=== PATIENT | male | born 1985 | race Caucasian/White ===

== ENCOUNTER 2024-11-11 14:15 | Outpatient (CLI) | payer OTHER, SELFPAY ==
--- NOTE | ~2024-11-11 | XR_ITS ---
EXAMINATION: XR chest 2V DATE: 11/11/2024 14:42 INDICATION: Pleurodynia with left rib pain post fall one week prior TECHNIQUE: PA and lateral views of the chest were obtained. COMPARISON: None FINDINGS: The lungs are clear with no focal airspace opacities, pulmonary edema, pleural effusion or pneumothor ax. The cardiomediastinal silhouette is normal. No rib fractures identified. Mild to moderate thoraci c spondylosis with mild anterior wedging of a couple mid thoracic vertebral bodies. IMPRESSION: 1. No acute cardiopulmonary disease. Reviewed, dictated and finalized at location B. L DEFENSE DIRECTOR
== END 2024-11-11 14:16 | disposition home or self-care (01) ==
LOC: MICIMG 14:21
DX: R07.81 Pleurodynia (principal)
CPT/HCPCS: 71046

== ENCOUNTER 2025-02-08 10:26 | Outpatient (CLI) | payer OTHER, SELFPAY ==
--- OUTSIDE RECORDS SUMMARY | 2025-02-08 11:57 | XMS_ITS | Clinical Summary ---
Author Organization [facility] Address [facility] [place] [address] Care Team Providers Care Eddy Current Inspector Name Role Phone Unavailable Primary Care Provider Unavailabl e Allergies No known active allergies Medications tamsulosin (FLOMAX) 0.4 MG Cap Take 1 capsule (0.4 mg total) by mouth daily. 30 capsule 07/07/2018 Active hydrocodone-melissa taminophen (NORCO) 5-325 MG tablet Take 1-2 tablets by mouth every 6 (six) hours as needed for Pain. 16 tablet 07/07/2018 Active Family History Medical History Relation Comments Diabetes Paternal Grandfather Diabetes Paternal Grandmother Relation Status Comments Paternal Grandfather Paternal Grandmother Social History Tobacco Use Types Packs/Day Years Used Date Smoking Tobacco: Never Smokeless Tobacco: Never Alcohol Use Standard Drinks/Week Comments Yes 0 (1 standard drink = 0.6 oz pur e alcohol) socially Sex and Gender Information Value Date Recorded Sex Assigned at Not on file Legal Sex Male 11:46 AM CDT Gender Identity Not on file Sexual Orientation Not on file Last Filed Vital Signs Vital Sign Reading Time Taken Comments Blood Pressure 159/94 07/07/2018 3:11 PM CDT Pulse 60 07/07/2018 3:11 PM CDT Temperature 36.9 C (98.5 F) 07/07/2018 11:52 AM CDT Respiratory Rate 18 07/07/2018 3:11 PM CDT Oxygen Saturation 100% 07/07/2018 3:11 PM CDT Inhaled Oxygen Concentration - - Weight 85.7 kg (189 lb) 07/07/2018 11:52 AM CDT Height 181.6 cm (5' 11.5 ) 07/07/2018 11:52 AM C DT Body Mass Index 25.99 07/07/2018 11:52 AM CDT Plan of Treatment Health Maintenance Due Date Last Done Comments Annual Physical 1986 Hepatitis C 2001 DTaP, Tdap and Td Vaccines ( 1 - Tdap) 2002 Hepatitis B Vaccines (1 of 3 - 19+ 3-dose series) 2002 COVID-19 Vaccine (2023-2 5 season) 2024 HPV Vaccines Aged Out No longer eligi ble based on patient's age to complete this topic Meningococcal B Vaccine Aged Out No l onger eligible based on patient's age to complete this topic Meningococcal Vaccine Aged Out No veronique mauricio eligible based on patient's age to complete this topic Pneumococcal Vaccine: Pediat rics (0 to 5 Years) and At-Risk Patients (6 to 64 Years) Aged Out No longer eligible b ased on patient's age to complete this topic RSV Immunizations Under 20 Months Aged Out No longer eligible based on patient's age to complete this topic
--- OUTSIDE RECORDS SUMMARY | 2025-02-08 11:57 | XMS_ITS | Clinical Summary ---
Author Organization [facility] Address [address] [place] [address] Care Team Providers Care Body Work Auto Trimmer Name Role Phone Unavailable Primary Care Provider Unavailabl e Source Comments [facility],non-owned Affiliates and Associated Physician Practices is amultiple site organization consisting of ambulatory clinics and hospital sitesin [place], [place], [place] and [place]. This disclosure is being madepursuant to the Care Everywhere program and may not contain all information available regarding this patient. Last updated 18.[facility] Allergies No known active allergies Medications Be aware that medications may not be up to date on this document. Always verify current medications with the patient. No known medications Social History Tobacco Use Types Packs/Day Years Used Date Smoking Tobacco: Never Smokeless Tobacco: Never Sex and Gender Information Value Date Recorded Sex Assigned at Not on file Gender Identity Not on file Sexual Orientation Not on file Last Filed Vital Signs Vital Sign Reading Time Taken Comments Blood Pressure 128/88 05/14/2020 7:13 PM CDT Pulse 102 05/14/2020 7:13 PM CDT Temperature 37 C (98.6 F) 05/14/2020 7:13 PM CDT Respiratory Rate 14 05/14/2020 7:13 PM CDT Oxygen Saturation 98% 05/14/2020 7:13 PM CDT Inhaled Oxygen Concentration - - Weight 88.5 kg (195 lb) 05/14/2020 7:13 PM CDT Height 180.3 cm (5' 11 ) 05/14/2020 7:13 PM CDT Body Mass Index 27.2 05/14/2020 7:13 PM CDT Plan of Treatment Health Maintenance Due Date Last Done Comments LIPID TESTING 1983 HIV SCREENING 1998 HEPATITIS C SCREENING 06/29/2001 DTAP/TDAP/TD VACCINES (1 - Tdap) 2002 HEPATITIS B VACCINE (1 of 3 - 19+ 3-dose series) 2002 COVID-19 VACCINE (1 - 2023-2 5 season) 2024 INFLUENZA VACCINE (#1) 2024 DEPRESSION SCREENING 11/09/2024 ZOSTER VACCINE (1 of 2) 2033 HIB VACCINE Aged Out No longer eligi ble based on patient's age to complete this topic HPV VACCINE Aged Out No longer eligi ble based on patient's age to complete this topic MENINGOCOCCAL (Group B) VACC INE SHARED DECISION-MAKING Aged Out No longer eligibl e based on patient's age to complete this topic MENINGOCOCCAL GROUPS A/C/Y/W VACCINE Aged Out No longer eligible b ased on patient's age to complete this topic PNEUMOCOCCAL VACCINE Aged Out No long er eligible based on patient's age to complete this topic
--- OUTSIDE RECORDS SUMMARY | 2025-02-08 11:57 | XMS_ITS | Data Portability ---
Author Organization [facility], Main Office Address [address] [place] [address] Assessment No assessment recorded. Plan of Treatment Reminders Order Date Submit Date Provider Last Modified By Organization Details Last Modified Time Details Appointments None recorded. Lab rapid flu (A+B) [address] [facility] [place], [address] [place] [address], [place], [address], 11:25:25 Referral general surgeon referral - Please call patient to schedule an appointmen t. Thank you. 2024 025 [facility] Db Garcia DO, [address], [address], [place], [address], 5 11:11:18 physical therapist referral - Please call patient to schedule. 2024 025 [email or web address] [facility], [address], [place], [address], 5 16:23:04 Procedures None recorded. Surgeries None recorded. Imaging US, groin - Please call patient to schedule. [address] [facility] ([facility]), [address] [place], [address], 5 13:00:44 XR, chest, 2 view 2024 025 [facility], [address], [place], [address], 13:17:52 Medication Orders tramadol 50 mg tablet 2024 025 [facility] [address] [place] [address], [address], 5 16:28:59 Tamiflu 75 mg capsule 2024 025 [address], [address] [place] [address], [address], 5 16:12:02 benzonatat e 200 mg capsule 2024 025 [address], [address] [place] [address], [address], 5 16:11:56 Medrol (Miguel) 4 mg tablets in a dose pack 2024 025 [address], [address] [place] [address], [address], 5 16:11:59 cyclobenza amry 10 mg tablet [address] [facility], [address] [place], [place], [id number], 5 09:57:18 meloxicam 7.5 mg tablet [address] [facility]58733, [address] [facility], [place], [place], [id number], 5 09:57:21 methylpred nisolone 8 mg tablet [address] [facility]35427, [address] [place], [place], [id number], 5 14:39:32 Patient TargetsNo targets recorded. Patient InstructionsNo instructions recorded. Reason for Referral Physical Therapist Referral for Ulnar nerve entrapment at elbow Please call patient to schedule. Referring Physician: Arminda Mcdonald [facility], Encounter Date: 12/08/2024 General Surgeon Referral for Right inguinal hernia Please call patient to schedule an appointment. Thank you. Referring Physician: Arminda Mcdonald [facility], Encounter Date: 01/04/2025 Results Created Date Observation Date Name Description Value Unit Range Abnormal Flag Note LastModifiedBy Organization Detail LastModifiedTime 12/13/1912/13/2024 rapid flu (A+B) Flu A positi ve Not Available [address], [address], 12/13/2024 10:12:02 12/13/19 25 12/13/2024 rapid flu (A+B) Flu B negati ve Not Available [address], [address], 12/13/2024 10:12:02 11/12/19 25 11/11/2024 XR, chest , 2 view No observ ation record ed. [address] [facility] [address], [place], [address], 11/15/2024 09:39:08 01/11/2001/10/2025 US, groin No observ ation record ed. [facility] [address] [place], [address], 01/11/2025 13:00:44 Result Notes None recorded. Problems Name Problem SNOMED Code Status Onset Date Resolution Date Notes Provider Name and Address Organization Details Recorded Time Pain of left ankle joint 8257519217538 9103 Active 2023 GUY Og [address] [facility], [facility] [address], [place], [address] , [facility] 05/01/202 4 14:20:49 Overweight 265565960 Active 2023 GUY Og [address], [place], [address], [employer] [facility] 4 14:30:12 Infection of tooth 955330216 Active 2023 GUY Og [address], [place], [address], [employer] [place] [employer] [facility] 4 09:52:54 Pain in left foot 6528117423806 07 Active 2023 Aaron Cheema DPM [address], [place], [address], [employer] [facility] 4 16:41:29 Sexually transmitted infectious disease 9981540 Active 2023 GUY Og [address], [place], [address], [employer] [facility] 4 16:17:28 Unable to concentrate 46387443 Active 2023 GUY Og [address], [place], [address], [employer] [facility] 4 16:19:20 Tibialis posterior tendinitis 106024874 Active 2023 KEVIN Keith null, [place] - [facility] [place] [facility] 4 15:03:45 Edema of lower extremity 771312071 Active 2023 Aaron Cheema DPM [address], [place], [address], [employer] [facility] [place] [facility] 4 09:45:08 Right Achilles tendinitis 8845136726811 02 Active 2023 Aaron Cheema DPM [address], [place], [address], [facility] [place] [employer] [facility] 4 09:45:17 Rib pain 302909093 Active 2024 GUY Og [address], [place], [address], [employer] 14:54:37 Ulnar nerve entrapment at elbow 131678192 Active 2024 GUY Og [address], [place], [address], [facility] 10:10:36 Influenza caused by Influenza A virus 760950825 Active 2024 GUY Og [address], [place], [address], [facility] 10:06:44 Right inguinal hernia 678762707 Active 2024 GUY Og [address], [place], [address], [facility] [facility] 16:19:01 Problem Notes None recorded. Procedures Surgical History Date Name Laterality Status Provider Name and Address Organization Details Recorded Time 08/25/20 24 Cortisone Injection Ankle-Right completed Aaron Cheema DPM [address], [place], [address], [facility] 08/29/2024 09:44:48 08/25/20 24 Unna boot - LE edema completed Aaron Cheema DPM [address], [place], [address], [facility] 08/29/2024 09:45:01 05/04/20 24 Cortisone Injection Ankle-Left completed Aaron Cheema DPM [address], [place], [address], [facility] 05/04/2024 10:11:19 05/04/20 24 Unna boot - LE edema completed Aaron Cheema DPM [address], [place], [address], [facility] 05/04/2024 10:11:27 05/02/20 24 Cortisone Injection Ankle-Left completed Aaron Cheema DPM [address] [facility], [facility] [address], [place], [address], [place] [facility] [employer] [facility] 05/02/2024 16:41:20 11/09/19 03 Appendectomy completed Bernie Orozco RN [facility] [employer] [facility] 03/09/2024 14:08:59 Imaging Results Imaging Date Name Status LastModified by Organiz ation Details LastModified Time 11/11/2024 XR, chest, 2 view completed formerly [facility], [facility]1983[facility]ke3 [facility] [address] [facility] [address], [place], [address], 11/15/2024 09:39:08 01/10/2025 US, groin completed [facility], [facility][id number] [facility] [address] [facility], [place], [address], 01/11/2025 13:00:44 Procedure Notes None recorded. Medical Equipment None Reported. Allergies No known drug allergies Medications Name Sig Start Date Stop Date Status Note LastModified by Organization Details LastModified Time cyclobenzap rine 10 mg tablet Take 1 tablet 3 times a day by oral route as needed for 14 days. 12/08 completed Not Available Not Available Not Available amoxicillin 500 mg capsule TAKE 1 CAPSULE THREE TIMES DAILY FOR 7 DAYS 11/11 completed Not Available Not Available Not Available ibuprofen 800 mg tablet TAKE 1 TABLET BY MOUTH THREE TIMES DAILY FOR 5 DAYS NEEDED FOR TOOTH PAIN 11/11 completed Not Available Not Available Not Available benzonatate 200 mg capsule Take 1 capsule 3 times a day by oral route as needed for 10 days. 01/04 completed Not Available Not Available Not Available hydrocodone 5 mg-acetamin ophen 325 mg tablet TAKE 1 TABLET BY MOUTH EVERY 4 TO 6 HOURS NEEDED FOR PAIN 06/08 completed Not Available Not Available Not Available Medrol (Miguel) 4 mg tablets in a dose pack Take as directed 01/04 completed Not Available Not Available Not Available Tamiflu 75 mg capsule Take 1 capsule twice a day by oral route as directed for 5 days. 01/04 completed Not Available Not Available Not Available tramadol 50 mg tablet Take 1 tablet every 8 hours by oral route as needed for 14 days. 2024 active Not Available Not Available Not Avai lable meloxicam 7.5 mg tablet Take 1 tablet twice a day by oral route as needed for 30 days. 12/08 completed Not Available Not Available Not Available amoxicillin 875 mg tablet TAKE 1 TABLET BY MOUTH STAT THEN TAKE 1 TABLET TWICE DAILY UNTIL GONE 06/08 completed Not Available Not Available Not Available methylpredn isolone 8 mg tablet Take 1 tablet 3 times a day by oral route. 11/11 completed Not Available Not Available Not Available amoxicillin 875 mg-potassiu m clavulanate 125 mg tablet Take 1 tablet every 12 hours by oral route as directed for 5 days. 06/08 completed Not Available Not Available Not Available Vitals Date Recorded Body height Body mass index (BMI) Body weight Oxygen saturation Oxygen saturation in Arterial blood by Pulse oximetry Body temperature Heart rate Provider Name and Address Organization Details Last Updated DateTime 4 180.34 cm 27.3 kg/m2 27533.1 g 98 % 98 % 98.4 [degF] 77 /min KEVIN Keith [facility] 4 14:50:52 Date Recorded Body height Body mass index (BMI) Body weight Body temperature Heart rate Respiratory rate Oxygen saturation Oxygen saturation in Arterial blood by Pulse oximetry Pain severity - 0-10 verbal numeric rating [Score] - Reported Systolic blood pressure Diastolic blood pressure Provider Name and Address Organization Details Last Updated DateTime 5 180.34 cm 27.4 kg/m2 47485.8 g 97.7 [degF] 83 /min 20 /min 96 % 96 % 7 142 mm[Hg] 80 mm[Hg] Bernie Orozco RN [facility] 5 14:41:37 Date Recorded Body height Body mass index (BMI) Body weight Body temperature Heart rate Respiratory rate Oxygen saturation Oxygen saturation in Arterial blood by Pulse oximetry Pain severity - 0-10 verbal numeric rating [Score] - Reported Systolic blood pressure Diastolic blood pressure Provider Name and Address Organization Details Last Updated DateTime 5 180.34 cm 27.6 kg/m2 70208.6 4 g 97.5 [degF] 74 /min 20 /min 97 % 97 % 2 146 mm[Hg] 90 mm[Hg] Bernie Orozco RN [facility] [employer] [facility] 5 10:00:25 Date Recorded Body height Body mass index (BMI) Body weight Body temperature Heart rate Respiratory rate Pain severity - 0-10 verbal numeric rating [Score] - Reported Oxygen saturation Oxygen saturation in Arterial blood by Pulse oximetry Systolic blood pressure Diastolic blood pressure Provider Name and Address Organization Details Last Updated DateTime 5 180.34 cm 27.4 kg/m2 42836.2 g 97.7 [degF] 82 /min 20 /min 4 98 % 98 % 100 mm[Hg] 50 mm[Hg] Bernie Orozco RN [facility] [employer] [facility] 5 09:59:55 Date Recorded Body height Body mass index (BMI) Body weight Body temperature Heart rate Respiratory rate Oxygen saturation Oxygen saturation in Arterial blood by Pulse oximetry Pain severity - 0-10 verbal numeric rating [Score] - Reported Systolic blood pressure Diastolic blood pressure Provider Name and Address Organization Details Last Updated DateTime 5 180.34 cm 27.1 kg/m2 98381.3 2 g 97.4 [degF] 69 /min 20 /min 97 % 97 % 4 120 mm[Hg] 80 mm[Hg] Bernie Orozco RN [facility] [employer] [facility] 5 16:14:05 Social History Question Answer Notes LastModified by Organizat ion Details LastModified Time Tobacco Smoking Status Never Smoker Bernie Orozco RN [facility] [employer] [facility] 03/09/2024 14:10:37 Do You Have An Advance Directive? No Information not available 03/09/2024 Is Blood Transfusion Acceptable In An Emergency? Yes Information not available 03/09/2024 What Is Your Level Of Caffeine Consumption? Moderate Coffee Information not available 03/09/2024 What Is Your Code Status? Full Code Information not available 03/09/2024 In The 14 Days Before Symptom Onset, Have You Had Close Contact With A Laboratory-confi rmed COVID-19 While That Case Was Ill? No Information not available 03/09/2024 In The 14 Days Before Symptom Onset, Have You Had Close Contact With A Person Who Is Under Investigation For COVID-19 While That Person Was Ill? No Information not available 03/09/2024 Are You Currently Employed? Yes Information not available 03/09/2024 What Type Of Diet Are You Following? REGULAR Information not available 03/09/2024 Which Illicit Or Recreational Drugs Have You Used? 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 3 Information not available 03/09/2024 On Those Days That You Engage In Moderate To Strenuous Exercise, How Many Minutes, On Average, Do You Exercise? 90 Information not available 03/09/2024 Have There Been Any Changes To Your Family Or Social Situation? Yes Information not available 11/11/2024 Are There Any Guns Present In Your Home? No Information not available 03/09/2024 How Many Years Have You Used Illicit Or Recreational Drugs? 20 Information not available 03/09/2024 Do You Use Insect Repellent Routinely? No Information not available 03/09/2024 Where Do You Live? SingleLevelHouse Information not available 03/09/2024 Do You Have A Medical Power Of Educational Psychology Teacher? No Information not available 03/09/2024 What Was The Date Of Your Most Recent Tobacco Screening? 05/02/2024 [email or web address] Information not available 05/02/2024 How Many Children Do You Have? 1 Information not available 03/09/2024 Do You Have Any Pets? Yes Information not available 03/09/2024 What Is Your Relationship Status? Single Information not available 03/09/2024 Do You Use Your Seat Belt Or Car Seat Routinely? Yes Information not available 03/09/2024 Do You Have Smoke And Carbon Monoxide Detectors In Your Home? Yes Information not available 03/09/2024 Are You Passively Exposed To Smoke? No Information not available 03/09/2024 Are There Any Smokers In Your House? No Information not available 03/09/2024 Do You Participate In Social Media? No Information not available 03/09/2024 What Types Of Sporting Activities Do You Participate In? Weights Information not available 03/09/2024 Do You Feel Stressed (tense, Restless, Nervous, Or Anxious, Or Unable To Sleep At Night)? [id number] Information not available 03/09/2024 Do You Use Any Illicit Or Recreational Drugs? Yes Information not available 03/09/2024 Do You Use Sunscreen Routinely? No Information not available 03/09/2024 Have You Recently Traveled Abroad? No Information not available 03/09/2024 Have You Used IV Drugs? No Information not available 03/09/2024 Do You Have Any Dietary Restrictions? No Information not available 11/11/2024 Sex: Male Functional Status Question Answer Note LastModified by Organizat ion Details LastModified Time What is your exercise level? Occasional Information not available 03/09/2024 Mental Status None recorded. Family History Relationship Description Onset Age of this Age Resolved Age Notes LastModified by Organization Details LastModified Time Father Diabetes mellitus Not available 2023 14:08:39 Paternal Grandmother Diabetes mellitus Not available 2023 14:08:40 Medical History No medical history recorded. Immunizations Vaccine Type Date Status Note Provider Nam e and Address Organization Details Recorded Time Tdap 03/09/2024 completed Bernie Orozco RN [facility], [place] - [facility] [employer] [facility] 03/09/2024 15:24:06 Past Encounters Encounter ID Performer Location Encounter Start Date Encounter Closed Date Diagnosis/Indication Diagnosis SNOMED-CT Code Diagnosis ICD10 Code Diagnosis Note [id number] GUY Og [facility] [address] 03/09/2024 13:57:40 03/09/2024 14:47:50 Pain of left ankle joint 2145150684 4473820 M25.572 [facility] [id number] E66 .3 Hepatitis C screening 41 8265396 Z11.59 Administra tion of tetanus vaccine 509649267 Z23 [id number] GUY Og [address] [address] 04/14/2024 16:02:56 04/14/2024 17:04:56 [id number] Aaron Cheema DPM [facility] [place] [address] [address] 05/02/2024 15:46:50 05/03/2024 08:58:50 Pain in left foot 4466694081 75604 M79.485 [id number] Aaron Cheema DPM [facility] [place] [address] [address] 05/04/2024 09:52:54 05/04/2024 13:59:15 [id number] GUY Og [facility] [address] 06/08/2024 15:41:04 06/08/2024 16:32:02 Unable to concentrate 96112353 R41.840 Venereal d isease screening 599679432 Z11.3 [id number] Faye Kelly NP [facility] [address] [address] 06/23/2024 15:27:35 06/23/2024 17:01:53 [id number] [facility] [address] [address] 08/25/2024 14:49:27 09/02/2024 11:24:14 Tibialis posterior tendinitis 365852947 M76.829 Edema of l ower extremity 732666341 R60.0 Right Achi lles tendinitis 6028172571 43195 M76.61 [id number] GUY Og [facility] [address] 11/11/2024 14:26:14 11/11/2024 15:09:14 Rib pain 839227460 R07.81 Patient has FMLA forms he would like completed. He would like an additional 3 weeks off of work. [id number] GUY Og [address] [address] 12/08/2024 09:45:58 12/08/2024 10:17:58 Ulnar nerve entrapment at elbow 383322006 G56.21 [id number] Arminda Mcdonald [address] [address] 12/13/2024 09:45:28 12/13/2024 10:09:26 Influenza caused by Influenza A virus 195026648 J09.X2 Symptoms x 3 days [id number] GUY Og [address] [address] 01/04/2025 15:57:16 01/04/2025 16:30:34 Right inguinal hernia 576059973 K40.90 Causing painDiscus sed risks of intestiona l strangulat ion, advised pt to go to ER for severe pain. Patient agreeable Health Concerns Section Related Observation LastModified by Organization Detai ls LastModified Time None Recorded Concern Status LastModified by Organization Details LastModified Time None Recorded Advance Directives Directive N: Payers Encounter Date Sequence Insurance Name Policy Number Policy Velásquez Covered Member ID Velásquez Member ID Guarantor Name 08/25/2024 1 [facility] [employer] Michael Childers [id number] Michael Childers 11/11/2024 1 [facility] [employer] Michael Childers [id number] Michael Childers 12/08/2024 1 [facility] [employer] Michael Childers [id number] Michael Childers 12/13/2024 1 [facility] [employer] Michael Childers [id number] Michael Childers 01/04/2025 1 [facility] [employer] Michael Childers [id number] Michael Childers Notes Date Note Type Note Provider Name and Address Organization Details Recorded Time 08/25/2024 text/html Pain in the post leg, near insert of TA and entire lower 1/3 of tendon TA is painful. Edema in LE Aaron Haywoodquan, DPM [address], [place], [address], [employer] 08/29/2024 09:45:21 11/11/2024 text/html Michael Palma i s a 39 year old male patient here today for a fall He states on he was tripped by a dog chain, he attempted to jump over the chain and it caught his feet, pulling him down quickly.His pain is the worst in the thoracic region, states it sometimes hurts to breathe. GUY Og [address], [place], [address], [facility] 11/11/2024 15:07:36 12/08/2024 text/html Michael Childers i s a 39 year old male patient here today for concern of right elbow pain He notes that one month ago he began having shoot pain in the right elbow. Feels his elbow is swollen medially and tender to touch.Has been utilizing ice and heatNotes weakness in the right hand GUY Og [address], [place], [address], [facility] 12/08/2024 11:04:53 12/13/2024 text/html Michael Childers i s a 39 year old male patient here today for sick concerns X3 days symptoms of fever, fatigue, congestion, cough GUY Og [address], [place], [address], [facility] 12/13/2024 10:12:32 01/04/2025 text/html Michael Childers i s a 39 year old male patient here today with concerns of a possible hernia States he noticed a bulge in the right inguinal area after coughing with influenza.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, [facility] [address], [place], [address], [place] [facility] [employer] [facility] 01/04/2025 16:59:32
== END 2025-02-08 10:27 | disposition home or self-care (01) ==
LOC: ANHSURGERY 10:33
PROVIDERS: Visit Provider Surgery
DX: K40.90 Unilateral inguinal hernia, without obstruction or gangrene, not specified as recurrent (principal); Z01.818 Encounter for other preprocedural examination
CPT/HCPCS: 36415; 86850; 86900; 86901

== ENCOUNTER 2025-02-14 00:31 | Day surgery (SDC) | payer OTHER, SELFPAY ==
--- NOTE | 2025-02-03 08:55 | SUR.PREOP ---
Report to the Outpatient Waiting Room, entrance under the green pavilion located off [facility], at time ___1100____ on date ____02/14/25___. Planned Procedure Time: ____1300____.? Time changes happen often and if your time is changed the preop area will call you the afternoon before. - You and your visitor will be asked to self-screen and do not enter if you have any COVID symptoms. Please call surgeon if you need to reschedule. - A mask is optional within the hospital at this time. Patients may have clear liquids (water, carbonated beverages, clear teas, apple juice) until 3 hours prior to surgery with a maximum of 20 ounces. - NO CLEAR LIQUIDS AFTER 1000 - No food from midnight until time of surgery and no smoking, or chewing tobacco (or any form of nicotine). No chewing gum, candy or mints. - Infants may have breast milk until 4 hours before surgery, formula 6 hours prior to surgery. - Children will be allowed to drink immediately following surgery.? If applicable, please bring a bottle or sippy cup to assist with drinking. Juice, water, soda, and popsicles are readily available.? For infants on formula, please bring formula the day of surgery.? Pacifiers are allowed. Take only the following medications with a SIP of water on the morning of surgery: TRAMADOL DO NOT STOP ANY OF YOUR OTHER PRESCRIPTION MEDICATIONS PRIOR TO SURGERY EXCEPT THE FOLLOWING Hold all vitamins and supplements for 3 days per anesthesiologist. Medications to discontinue per physician N/A Date to take last dose Please no make-up, nail french, hairspray, perfume, deodorant, or body powder the day of surgery.? No jewelry (including any body piercings) or valuables the day of surgery, leave them at home.? Please take a shower or bath the night before, or the morning of, surgery with an antibacterial soap.? Wear comfortable, loose fitting clothing.? Children are encouraged to wear pajamas. - Jewelry must be removed prior to entering the operating room.? Rings and piercings that are not removed may be cut off. - The hospital will not accept responsibility for valuables.? - Please leave all valuables, including medications, at home the day of surgery. If you are going home after surgery, a licensed limo driver must drive you home.? - NO public transportation without another adult if you receive anesthesia. - We recommend that an adult stay with you for 24 hours following discharge. - We also recommend that you do not drive, make important decision, drink alcoholic beverages, or take any drugs that were not prescribed by your health care provider for at least 24 hours after your discharge time. For Pediatric surgeries, we recommend two adults accompany the child home. Follow any additional instructions given to you from your surgeon. Telephone instructions given to SELENA RAYO JR. and asked if any additional questions and then verbalized understanding. Patient advised to call surgeon office or pre surgery nurse liaison [phone] if any additional questions.
[2025-02-03 09:10] VITALS: BMI 26.5
[2025-02-14] VITALS (9 sets, daily range): BP systolic 112–134; BP diastolic 64–90; PULSE 54–73; RESP 10–18; TEMP 36.3–36.7; O2SAT 96–100; BMI 28.0
--- OUTSIDE RECORDS SUMMARY | 2025-02-14 00:37 | XMS_ITS | Clinical Summary ---
Author Organization [facility] Address [facility] [place] [address] Care Team Providers Care Vegetable Farm Manager Name Role Phone Unavailable Primary Care Provider [...]
--- OUTSIDE RECORDS SUMMARY | 2025-02-14 00:37 | XMS_ITS | Data Portability ---
Author Organization [facility] [employer], Main Office Address [address] [place] [address] Assessment No assessment recorded. Plan of Treatment Reminders Order Date Submit Date Provider Last Modified By Organization Details Last Modified Time Details Appointments None recorded. Lab rapid flu (A+B) [address] [facility] Formerly [facility], [address] [place] [address], [place], [address], 11:25:25 Referral general surgeon referral - Please call patient to schedule an appointmen t. Thank you. 2024 025 [facility] Db Garcia DO, [address], [place], [address], 5 11:11:18 physical therapist referral - Please call patient to schedule. 2024 025 [email or web address] [facility], [address], [place], [address], 5 16:23:04 Procedures None recorded. Surgeries None recorded. Imaging US, groin - Please call patient to schedule. 2024 025 [facility] ([facility]), [address] [place], [address], 5 13:00:44 XR, chest, 2 view 2024 025 [facility], [address], [place], [address], 13:17:52 Medication Orders tramadol 50 mg tablet 2024 025 [facility] [address] [place] [address], [address], 5 16:28:59 Tamiflu 75 mg capsule 2024 025 [address], [address] [place] [address], [address], 5 16:12:02 benzonatat e 200 mg capsule 2024 025 [address], [address] [place] [address], [address], 5 16:11:56 Medrol (Miguel) 4 mg tablets in a dose pack 2024 025 [address], [address] [place] [address], [address], 5 16:11:59 cyclobenza mary 10 mg tablet [address] [facility], [address] [place], [place], [id number], 5 09:57:18 meloxicam 7.5 mg tablet [address] [facility], [address], [place], [place], [id number], 5 09:57:21 methylpred nisolone 8 mg tablet [address] [facility], [address] [place], [place], [id number], 5 14:39:32 Patient TargetsNo targets recorded. Patient InstructionsNo instructions recorded. Reason for Referral Physical Therapist Referral for Ulnar nerve entrapment at elbow Please call patient to schedule. Referring Physician: Arminda Mcdonald [facility], Encounter Date: 12/08/2024 General Surgeon Referral for Right inguinal hernia Please call patient to schedule an appointment. Thank you. Referring Physician: Arminda Mcdonald [facility], Encounter Date: 01/04/2025 Results Created Date Observation Date Name Description Value Unit Range Abnormal Flag Note LastModifiedBy Organization Detail LastModifiedTime 12/13/1912/13/2024 rapid flu (A+B) Flu A positi ve Not Available [address], [address], 12/13/2024 10:12:02 12/13/19 25 12/13/2024 rapid flu (A+B) Flu B negati ve Not Available [address], [address], 12/13/2024 10:12:02 11/12/19 25 11/11/2024 XR, chest , 2 view No observ ation record ed. [address] [facility] [address], [place], [address], 11/15/2024 09:39:08 01/11/2001/10/2025 US, groin No observ ation record ed. [facility] [address] [place], [address], 01/11/2025 13:00:44 Result Notes None recorded. Problems Name Problem SNOMED Code Status Onset Date Resolution Date Notes Provider Name and Address Organization Details Recorded Time Pain of left ankle joint 7734280476241 9103 Active 2023 GUY Og [address] [facility], [facility] [address], [place], [address] , [facility] 05/01/202 4 14:20:49 Overweight 546278038 Active 2023 GUY Og [address], [place], [address], [employer] Partner [employer] [facility] 4 14:30:12 Infection of tooth 955250693 Active 2023 GUY Og [address], [place], [address], App Partner S ID [employer] [facility] 4 09:52:54 Pain in left foot 3989800330660 07 Active 2023 Aaron Cheema DPM [address], [place], [address], [employer] - [employer] [facility] 4 16:41:29 Sexually transmitted infectious disease 7499534 Active 2023 GUY Og [address], [place], [address], [employer] [facility] 4 16:17:28 Unable to concentrate 24039889 Active 2023 GUY Og [address], [place], [address], [employer] - [employer] [facility] 4 16:19:20 Tibialis posterior tendinitis 239866788 Active 2023 KEVIN Keith null, [place] - [facility] 4 15:03:45 Edema of lower extremity 414958718 Active 2023 Aaron Cheema DPM [address], [place], [address], [employer] - [facility] 4 09:45:08 Right Achilles tendinitis 1790565183907 02 Active 2023 Aaron Cheema DPM [address], [place], [address], [facility] - S ID [employer] [facility] 4 09:45:17 Rib pain 442552100 Active 2024 GUY Og [address], [place], [address], [employer] 14:54:37 Ulnar nerve entrapment at elbow 504332648 Active 2024 GUY Og [address], [place], [address], [employer] 10:10:36 Influenza caused by Influenza A virus 259085286 Active 2024 GUY Og [address], [place], [address], [employer] 10:06:44 Right inguinal hernia 360628527 Active 2024 GUY Og [address], [place], [address], [employer] 16:19:01 Problem Notes None recorded. Procedures Surgical History Date Name Laterality Status Provider Name and Address Organization Details Recorded Time 08/25/20 24 Cortisone Injection Ankle-Right completed Aaron Cheema DPM [address], [place], [address], [employer] 08/29/2024 09:44:48 08/25/20 24 Unna boot - LE edema completed Aaron Cheema DPM [address], [place], [address], [employer] 08/29/2024 09:45:01 05/04/20 24 Cortisone Injection Ankle-Left completed Aaron Cheema DPM [address], [place], [address], [employer] 05/04/2024 10:11:19 05/04/20 24 Unna boot - LE edema completed Aaron Cheema DPM [address], [place], [address], [employer] 05/04/2024 10:11:27 05/02/20 24 Cortisone Injection Ankle-Left completed Aaron Cheema DPM [address] [facility], [facility] [address], [place], [address], [place] [facility] [employer] [facility] 05/02/2024 16:41:20 11/09/19 03 Appendectomy completed Bernie Orozco RN [facility] [employer] [facility] 03/09/2024 14:08:59 Imaging Results Imaging Date Name Status LastModified by Organiz ation Details LastModified Time 11/11/2024 XR, chest, [email or web address] [address] [facility] [address], [place], [address], 11/15/2024 09:39:08 01/10/2025 US, groin [email or web address] [address] [facility], [place], [address], 01/11/2025 13:00:44 Procedure Notes None recorded. Medical [...] Updated DateTime 4 180.34 cm 27.3 kg/m2 43831.1 g 98 % 98 % 98.4 [degF] 77 /min KEVIN Keith [facility] [employer] 4 14:50:52 Date Recorded Body height Body mass index (BMI) Body weight Body temperature Heart rate Respiratory rate Oxygen saturation Oxygen saturation in Arterial blood by Pulse oximetry Pain severity - 0-10 verbal numeric rating [Score] - Reported Systolic blood pressure Diastolic blood pressure Provider Name and Address Organization Details Last Updated DateTime 5 180.34 cm 27.4 kg/m2 73774.8 g 97.7 [degF] 83 /min 20 /min 96 % 96 % 7 142 mm[Hg] 80 mm[Hg] Bernie Orozco RN [facility] [employer] 5 14:41:37 Date Recorded Body height Body mass index (BMI) Body weight Body temperature Heart rate Respiratory rate Oxygen saturation Oxygen saturation in Arterial blood by Pulse oximetry Pain severity - 0-10 verbal numeric rating [Score] - Reported Systolic blood pressure Diastolic blood pressure Provider Name and Address Organization Details Last Updated DateTime 5 180.34 cm 27.6 kg/m2 52321.6 4 g 97.5 [degF] 74 /min 20 /min 97 % 97 % 2 146 mm[Hg] 90 mm[Hg] Bernie Orozco RN [facility] [employer] [facility] 5 10:00:25 Date Recorded Body height Body mass index (BMI) Body weight Body temperature Heart rate Respiratory rate Pain severity - 0-10 verbal numeric rating [Score] - Reported Oxygen saturation Oxygen saturation in Arterial blood by Pulse oximetry Systolic blood pressure Diastolic blood pressure Provider Name and Address Organization Details Last Updated DateTime 5 180.34 cm 27.4 kg/m2 56805.2 g 97.7 [degF] 82 /min 20 /min 4 98 % 98 % 100 mm[Hg] 50 mm[Hg] Bernie Orozco RN [facility] [employer] [facility] 5 09:59:55 Date Recorded Body height Body mass index (BMI) Body weight Body temperature Heart rate Respiratory rate Oxygen saturation Oxygen saturation in Arterial blood by Pulse oximetry Pain severity - 0-10 verbal numeric rating [Score] - Reported Systolic blood pressure Diastolic blood pressure Provider Name and Address Organization Details Last Updated DateTime 5 180.34 cm 27.1 kg/m2 82602.3 2 g 97.4 [degF] 69 /min 20 /min 97 % 97 % 4 120 mm[Hg] 80 mm[Hg] Bernie Orozco RN [facility] [employer] [facility] 5 16:14:05 Social History Question Answer Notes LastModified by Organizat ion Details LastModified Time Tobacco Smoking Status Never Smoker Bernie Orozco RN 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 No Information not available 03/09/2024 What Was The Date Of Your Most Recent Tobacco Screening? 05/02/2024 [email or web address] Information not available 05/02/2024 How Many Children [...] Anxious, Or Unable To Sleep At Night)? [id number] Information not available 03/09/2024 Do You Use [...] Time Tdap 03/09/2024 completed Bernie Orozco RN [facility], [place] - [facility] [employer] [facility] 03/09/2024 15:24:06 Past Encounters Encounter ID Performer Location Encounter Start Date Encounter Closed Date Diagnosis/Indication Diagnosis SNOMED-CT Code Diagnosis ICD10 Code Diagnosis Note [id number] GUY Og [facility] [address] 03/09/2024 13:57:40 03/09/2024 14:47:50 Pain of left ankle joint 9081284766 7436572 M25.572 [facility] [id number] E66 .3 Hepatitis C screening 41 4530815 Z11.59 Administra tion of tetanus vaccine 644111617 Z23 [id number] GUY Og [address] [address] 04/14/2024 16:02:56 04/14/2024 17:04:56 [id number] Aaron Cheema DPM [facility] [place] [address] [address] 05/02/2024 15:46:50 05/03/2024 08:58:50 Pain in left foot 2749566489 22877 M79.222 [id number] Aaron Cheema DPM [facility] [place] [address] [address] 05/04/2024 09:52:54 05/04/2024 13:59:15 [id number] GUY Og [facility]_[address] [address] 06/08/2024 15:41:04 06/08/2024 16:32:02 Unable to concentrate 30469185 R41.840 Venereal d isease screening 381828551 Z11.3 [id number] Faye Kelly NP [facility] [address] [address] 06/23/2024 15:27:35 06/23/2024 17:01:53 [id number] Aaron [facility]PM [facility] [address] [address] 08/25/2024 14:49:27 09/02/2024 11:24:14 Tibialis posterior tendinitis 866310568 M76.829 Edema of l ower extremity 522395876 R60.0 Right Achi lles tendinitis 2348139853 02286 M76.61 [id number] GUY Og [facility] [address] 11/11/2024 14:26:14 11/11/2024 15:09:14 Rib pain 029988195 R07.81 Patient has FMLA forms he would like completed. He would like an additional 3 weeks off of work. [id number] GUY Og [address] [address] 12/08/2024 09:45:58 12/08/2024 10:17:58 Ulnar nerve entrapment at elbow 123521706 G56.21 [id number] Arminda Mcdonald [address] [address] 12/13/2024 09:45:28 12/13/2024 10:09:26 Influenza caused by Influenza A virus 893841686 J09.X2 Symptoms x 3 days [id number] GUY Og [address] [address] 01/04/2025 15:57:16 01/04/2025 16:30:34 Right inguinal hernia 083883804 K40.90 Causing painDiscus sed risks of intestiona [...] Velásquez Member ID Guarantor Name 08/25/2024 1 [facility] [employer] Michael Childers [id number] Michael Childers 11/11/2024 1 [facility] Michael Childers [id number] Michael Childers 12/08/2024 1 [facility] Michael Childers [id number] Michael Childers 12/13/2024 1 [facility] Michael Childers [id number] Michael Childers 01/04/2025 1 [facility] [employer] Michael Childers [id number] Michael Childers Notes Date Note Type Note Provider Name and Address Organization Details Recorded Time 08/25/2024 text/html Pain in the post leg, near insert of TA and entire lower 1/3 of tendon TA is painful. Edema in LE Aaron Haywoodquan, DPM [address], [place], [address], [employer] 08/29/2024 09:45:21 11/11/2024 text/html Michael Palma i s a 39 year old male patient here today for a fall He states on he was tripped by a dog chain, he attempted to jump over the chain and it caught his feet, pulling him down quickly.His pain is the worst in the thoracic region, states it sometimes hurts to breathe. GUY Og [address] [employer], [place], [address], [employer] 11/11/2024 15:07:36 12/08/2024 text/html Michael Childers i [...] GUY Og [address], [place], [address], [employer] 12/08/2024 11:04:53 12/13/2024 text/html Michael Childers i s a 39 year old male patient here today for sick concerns X3 days symptoms of fever, fatigue, congestion, cough GUY Og [address], [place], [address], [employer] 12/13/2024 10:12:32 01/04/2025 text/html Michael Childers i s a 39 year old male patient here today with concerns of a possible hernia States he noticed a bulge in the right inguinal area after coughing with influenza.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
--- OUTSIDE RECORDS SUMMARY | 2025-02-14 00:37 | XMS_ITS | Clinical Summary ---
Author Organization [facility] Address [address] [place] [address] Care Team Providers Care Interventional Nurse Name Role Phone Unavailable Primary Care Provider Unavailabl e Source Comments [facility],non-owned Affiliates and Associated Physician Practices is amultiple site organization consisting of ambulatory clinics and hospital sitesin [place], [place] and [place]. This disclosure is being madepursuant to the Care Everywhere program and may not contain all information available regarding this patient. Last updated 18.[facility] Allergies No known active allergies Medications Be [...]
[2025-02-14] MEDS: LACTATED RINGERS 1,000 ML 30 ML IV CONT ×2 (11:20→14:56)
[2025-02-14] MEDS: ACETAMINOPHEN 500 MG TABLET 1000 MG PO (11:53)
[2025-02-14] MEDS: KETOROLAC 15 MG/ML VIAL (*BKC) IV PUSH (11:53)
--- NOTE | 2025-02-14 13:08 | WPDHPUPDATE1 ---
History and Physical Update Update Date/Time: 02/14/25 13:08 History and Physical has been reviewed, including an updated exam of the patient. There are NO changes in the patient's condition. Risks, benefits, and alternatives have been discussed and questions answered. Patient agrees to proceed with procedure.
--- NOTE | 2025-02-14 13:09 | PM.IMHP ---
H&P: HPI History of Present Illness Date/Time: 02/14/25 13:09 Chief Complaint: Right inguinal hernia Narrative: This is a 39-year-old man who presents for right inguinal hernia repair. He reports no changes since last seen in the office. Review of Systems Review of Systems: All systems reviewed & are unremarkable except as noted in HPI and below Constitutional: Constitutional: Denies chills, Denies fever(s), Denies headache(s) and Denies weight loss Eyes: Eyes: Denies change in vision ENT: Denies dizziness, Denies headache(s), Denies neck mass and Denies throat swelling Cardiovascular: Cardiovascular: Denies chest pain, Denies lightheadedness and Denies dyspnea Respiratory: Respiratory: Denies cough, Denies dyspnea and Denies wheezing Gastrointestinal: Gastrointestinal: Denies abdominal pain, Denies change in bowel habits, Denies nausea and Denies vomiting Genitourinary: Genitourinary: Denies hematuria and Denies dysuria Musculoskeletal: Musculoskeletal: Reports as per HPI Integumentary/Breasts: Skin/Breast: Reports as per HPI Neurologic: Denies dizziness and Denies headache(s) Allergic/Immunologic: Allergic/Immunologic: Denies throat swelling and Denies wheezing PMFSH Surgical History Surgical History (Updated 01/13/25 @ 09:09 by Rhianna Moore) History of appendectomy 08/2002 - open appendectomy Family History Family History (Updated 01/13/25 @ 08:56 by Rhianna Moore) Father Diabetes mellitus Grandparent Diabetes mellitus Social History Social History (Updated 01/13/25 @ 09:00 by Rhianna Moore) Smoking status: Never smoker Tobacco type: cigarettes Alcohol intake: never Substance use type: marijuana Other substance usage details: MARIJUANA DAILY Current Housing: Decline to Answer Concerned About Future Housing: Decline to Answer Difficulty Paying Gas/Electric Bills: Decline to Answer Difficulty Paying for Meds: Decline to Answer Currently Unemployed: Decline to Answer Education: Decline to Answer Living arrangements: with family Meds Home Medications and Allergies Home Medications ?Medication ?Instructions ?Recorded ?Confirmed ?Type tramadol 50 mg tablet 50 mg PO Q8H PRN pain 02/03/25 02/14/25 History Allergies Allergy/AdvReac Type Severity Reaction Status Date / Time No Known Allergies Allergy Mild Verified 04/08/25 12:08 Vital Signs Vital Signs - 24 hr 02/14/25 11:20 Temperature 98.1 F Pulse Rate 68 Respiratory Rate 16 Blood Pressure 132/64 Pulse Oximetry 98 Oxygen Delivery Room Air Exam Const: General: no acute distress and alert Orientation/consciousness: patient oriented x3 HENMT: Head: normocephalic and atraumatic Ears: hearing grossly normal bilaterally Face/Nose/Sinus: Normal nares present Mouth: Yes Normal oral and palatal mucosa present Eyes: Periorbital: periorbital findings normal Sclera: sclerae normal EOM: EOMs intact bilaterally Neck: Neck: normal visual inspection, no lymphadenopathy and trachea midline Chest: Chest palpation & inspection: normal inspection of the chest Resp: Effort & Inspection: normal respiratory effort Auscultation: clear to auscultation bilaterally Cardio: Jugular venous distension: no JVD Rate: regular rate Rhythm: regular rhythm Heart sounds: S1 normal heart sound present and S2 normal heart sound present Peripheral pulses: Peripheral pulses 2+ throughout GI: Inspection: normal to inspection GI Palp: Yes Soft to palpation, No Tenderness to palpation present (GI), No Guarding due to palpation present (GI) and No Rebound tenderness present Percussion: Yes normal to percussion Auscultation: normal bowel sounds : General: Yes no CVA tenderness Scrotum: inguinal hernia on the right Back/Spine/Pelvis: Back: no CVA tenderness Neuro: General: patient oriented x3, no focal motor deficits and CN's II-XI intact bilaterally Cognition (Neuro): normal cognition Speech: normal speech Motor exam (neuro): 5/5 motor strength present throughout Extrem: General: capillary refill normal and no clubbing, cyanosis or edema Assessment and Plan Assessment and plan (1) Right inguinal hernia: Code(s): K40.90 - Unilateral inguinal hernia, without obstruction or gangrene, not specified as recurrent Status: Acute Assessment and Plan: I have recommended laparoscopic right inguinal hernia repair with mesh, da Joseph assisted. I have discussed the procedure, risks, benefits, and alternatives with the patient. All questions answered. No changes since last seen in office.
--- NOTE | 2025-02-14 13:11 | WPDANESEPPF ---
Anes - Initial Pre Proc Eval Procedure: Operation Date: 02/14/25 13:00 Proposed Procedures p Laparoscopic Right Inguinal Hernia Repair with Mesh, Davinci Assisted - Db Garcia DO Date/Time: 02/14/25 13:11 Surgeon: Db Garcia DO Pre Op Diagnosis: Right Inguinal Hernia Patient Data Age: 39 Gender: M Height: 1.8 m Weight: 91.2 kg Last Vital Signs Temp 36.7 C 02/14/25 11:20 Pulse 68 02/14/25 11:20 Resp 16 02/14/25 11:20 BP 132/64 02/14/25 11:20 Pulse Ox 98 02/14/25 11:20 O2 Del Method Room Air 02/14/25 11:20 Allergies Allergy/AdvReac Type Severity Reaction Status Date / Time No Known Allergies Allergy Mild Verified 02/14/25 12:08 Home Medications ?Medication ?Instructions ?Recorded ?Confirmed ?Type tramadol 50 mg tablet 50 mg PO Q8H PRN pain 02/03/25 02/14/25 History Patient hx anesthesia problems: none Family hx anesthesia problems: none Results Review: All pre-operative results and documents have been reviewed as part of the pre-operative evaluation. [facility] Surgical History Surgical History History of appendectomy 08/2002 - open appendectomy Family History Family History Father Diabetes mellitus Grandparent Diabetes mellitus Social History Social History Smoking status: Never smoker Tobacco type: cigarettes Alcohol intake: never Substance use type: marijuana Other substance usage details: MARIJUANA DAILY Current Housing: Decline to Answer Concerned About Future Housing: Decline to Answer Difficulty Paying Gas/Electric Bills: Decline to Answer Difficulty Paying for Meds: Decline to Answer Currently Unemployed: Decline to Answer Education: Decline to Answer Living arrangements: with family Anes - Eval Final PreProcedure Day of Procedure 02/14/25 13:11 Patient weight: overweight Heart: regular rate and rhythm Lungs: clear to auscultation Airway: Mallampati scale class II Neurological: alert and oriented Last oral intake: >/= 8 hours ASA classification: II Emergent: no Anesthetic plan: proceed Anesthesia type and monitoring: general ETT and standard monitoring Results Review: All pre-operative results and documents have been reviewed as part of the pre-operative evaluation. Informed Consent: The patient's anesthetic plan and its attendant risks and benefits were discussed with the patient/family/POA. Questions were solicited and answers provided to the satisfaction of the patient/family/POA.
[2025-02-14] MEDS: ceFAZolin 2 GM/D5W 50 ML 2 GM/50 ML BAG IVPB (13:43)
[2025-02-14] MEDS: BUPIVACAINE/EPINEPHRINE 0.5% 50 ML VIAL 30 ML INFILTRATE (14:10)
--- NOTE | 2025-02-14 14:52 | W.PM.PROC2 ---
Procedure Note - Detailed Date of Procedure 02/14/25 Pre-op Diagnosis Right Inguinal Hernia Post-op Diagnosis Same (Indirect RIH) Procedure Performed Laparoscopic right inguinal hernia repair with mesh, da Joseph assisted Surgeon Db Garcia DO Anesthesia General and Local (0.5% bupivacaine with epinephrine) Indications This is a 39-year-old male who presents with with a right inguinal hernia. He noticed right groin pain and a bulge for about the past 2 months. Pain was worse with physical activity. He had an ultrasound which showed evidence of a fat containing right inguinal hernia. Discussions were made with the patient about treatment options and decision was made to proceed with robotic assisted laparoscopic right inguinal hernia repair with mesh. Findings Robotic assisted laparoscopic right inguinal hernia repair with mesh was performed. The patient was found to have an indirect right inguinal hernia. There was no evidence of a left inguinal hernia. A robotic transabdominal preperitoneal approach was utilized for repair. The hernia sac was reduced and a wide enough preperitoneal pocket was created. I then placed a large right 3DMax mid mesh overlying the entire right myopectineal orifice. Description of Procedure Procedure as well as risks, benefits, and alternatives were discussed with the patient. Written consent was obtained and placed in chart prior to procedure. Patient was brought back to surgical suite. He was placed supine on operating table. Time-out was done to confirm patient and procedure. He was then intubated by Anesthesia Department. His abdomen was prepped and draped in sterile fashion using chlorhexidine prep. 0.5% bupivacaine with epinephrine was infiltrated at each location for incision. An 8 mm incision was made in the left lateral abdomen, and a 5 mm Optiview trocar was advanced through the abdominal layers under direct visualization. Once inside the abdominal cavity, carbon dioxide insufflation was used to create a pneumoperitoneum. A camera was inserted and the abdominal cavity was inspected. The patient was placed in slight Trendelenburg position. An 8 millimeter incision was made on the right lateral abdomen and an 8 millimeter trocar was inserted under direct visualization. Another 8 millimeter incision was made just superior to the umbilicus and an 8 millimeter trocar was inserted under direct visualization. The 5 mm port was then removed and this was replaced with another 8 mm robotic port. The robotic arms were brought up to the patient's bedside and secured to the ports. The camera and instruments were inserted. I then moved over to the robotic console and took control of the camera and instruments. After careful inspection of the abdominal cavity, I began scoring the peritoneum along the right lower quadrant using scissors with electrocautery. The preperitoneal plane was entered and this was carefully dissected caudally along the inferior epigastric vessels. Careful dissection with scissors with electrocautery and blunt dissection was used to continue this dissection. I dissected far enough laterally to allow for mesh placement, and also dissected medially to identify the pubic arch and Giovanni's ligament. The hernia sac was identified and carefully dissected posteriorly. The cord contents were also identified and the peritoneum was carefully dissected far enough posteriorly to allow for mesh placement. Once an adequate pocket was created, I then placed the mesh within the preperitoneal pocket and carefully unfolded it. The mesh was centered on the hernia defect with adequate overlap circumferentially. The inferior edge of the mesh was inspected to ensure that it was far enough away from the peritoneal edge. The mesh appeared in proper position overlying the entire myopectineal orifice. The mesh was secured using 3-0 Vicryl simple interrupted sutures in Giovanni's ligament, the superior medial edge, and superior lateral edge of the mesh. The peritoneum was then closed over the mesh using a 3-0 V-lock running absorbable suture. The robotic instruments were removed. The robotic arms were disengaged from the ports and moved away from the bedside. The patient was flattened out in bed, the ports were removed under direct visualization, and the pneumoperitoneum was released. The skin of the incisions was approximated using 4-0 Monocryl subcuticular suture, and Exofin glue was applied on top. The patient was awakened from anesthesia, extubated, and transferred to recovery. Implants Large right 3DMax mid mesh Estimated Blood Loss 5 Complications No immediate complications Condition Stable Disposition Same day [facility] Billing Surgery - Charge Forward: Surgery Billing
[2025-02-14] MEDS: fentaNYL CITRATE INJ (*CRX) 100 MCG/2 ML VIAL 25 MCG IV PUSH ×6 (15:14→15:42)
[2025-02-14] MEDS: oxyCODONE HCL (*CRX) 5 MG TAB IR PO (16:10)
--- NOTE | 2025-02-14 17:06 | SUR.PHASEII ---
1706: patient ready for dc. waiting on ride.
== END 2025-02-14 17:16 | disposition home or self-care (01) ==
PROVIDERS: Visit Provider Surgery
PROC: 8E0Y4CZ Robotic Assisted Procedure of Lower Extremity, Percutaneous Endoscopic Approach (ICD-10-PCS; CPT 49650; principal; 2025-02-14 13:00)
DX: K40.90 Unilateral inguinal hernia, without obstruction or gangrene, not specified as recurrent (principal)
CPT/HCPCS: 49650; S2900; A9270; C1781; J0690; J1100; J1171; J1885; J2003; J2250; J2405; J2704; J3010; J7030; J7120